=== PATIENT | female | born 1985 | race Caucasian/White ===

== ENCOUNTER 2024-04-20 09:08 | Outpatient (CLI) | payer BC, SELFPAY | END 2024-04-20 09:09 | disposition home or self-care (01) | LOC: NFLDREF 04-23 12:11 | PROVIDERS: Visit Provider Physician Assistant | DX: R30.0 Dysuria (principal); N39.0 Urinary tract infection, site not specified | CPT/HCPCS: 87086 ==

== ENCOUNTER 2024-05-06 08:45 | Outpatient (CLI) | payer BC, SELFPAY | END 2024-05-06 08:46 | disposition home or self-care (01) | LOC: NFLDREF 05-09 04:50 | PROVIDERS: Visit Provider Emergency Medicine | DX: Z31.69 Encounter for other general counseling and advice on procreation (principal); Z13.1 Encounter for screening for diabetes mellitus; Z13.6 Encounter for screening for cardiovascular disorders; Z13.820 Encounter for screening for osteoporosis | CPT/HCPCS: 80061; 82306; 82947 ==

== ENCOUNTER 2024-05-11 10:28 | Outpatient (CLI) | payer BC, SELFPAY | END 2024-05-11 10:29 | disposition home or self-care (01) | LOC: NFLDREF 05-14 06:28 | PROVIDERS: Visit Provider Nurse Practitioner Family | DX: N30.00 Acute cystitis without hematuria (principal) | CPT/HCPCS: 87086 ==

== ENCOUNTER 2024-05-21 10:45 | Outpatient (CLI) | payer BC, SELFPAY | END 2024-05-21 10:46 | disposition home or self-care (01) | LOC: NFLDREF 05-22 05:20 | PROVIDERS: Visit Provider Nurse Practitioner Family | DX: R39.15 Urgency of urination (principal) | CPT/HCPCS: 87086 ==

== ENCOUNTER 2024-06-27 13:16 | Outpatient (CLI) | payer BC, SELFPAY | END 2024-06-27 13:17 | disposition home or self-care (01) | LOC: NFLDREF 07-06 23:46 | PROVIDERS: Visit Provider Physician Assistant | DX: R35.0 Frequency of micturition (principal) | CPT/HCPCS: 87086 ==